=== PATIENT | female | born 1990 | race Caucasian/White ===

== ENCOUNTER 2019-09-22 23:03 | Emergency (ER) | payer OTHER ==
[~2019-09-22] VITALS: Ht 175.3 cm; Wt 93.4 kg
[2019-09-22 23:30] VITALS: BP_SYST 130
--- NOTE | 2019-09-23 00:07 | NUR ---
Patient to ER H1 to gown for evaluation. Side rails up.
--- NOTE | 2019-09-23 00:08 | NUR ---
Patient complains of left hand pain. Noted swelling to hand and hematoma. Pt states a box full of books fell and landed on her left hand. No deformities. CMS intact. No other injuries/complaints per patient or noted.
--- NOTE | 2019-09-23 00:14 | NUR ---
ER Dr. Baker at bedside examining patient.
[2019-09-23] MEDS ORDERED: KETOROLAC TROMETHAMINE 30 MG VIAL IM ONE (00:30)
[2019-09-23 00:55] VITALS: BP_SYST 130
--- NOTE | 2019-09-23 00:55 | NUR ---
Patient given written and verbal discharge instructions and verbalizes understanding. ER MD discussed with patient the results and treatment provided. Patient in stable condition. ID arm band removed. Rx of Naprosyn and Percocet given. Patient educated on pain management and to follow up with PMD. Pain Scale 0. Opportunity for questions provided and answered. Medication side effect fact sheet provided.
== END 2019-09-23 00:55 | disposition home or self-care (01) ==
LOC: SED 23:03
DX: S60.222A Contusion of left hand, initial encounter (principal); G43.901 Migraine, unspecified, not intractable, with status migrainosus; W22.8XXA Striking against or struck by other objects, initial encounter; Y93.89 Activity, other specified; Y92.89 Other specified places as the place of occurrence of the external cause; Y99.8 Other external cause status
CPT/HCPCS: 29125; 73130; 96372; 99283; J1885